=== PATIENT | male | born 1950 | race Two or more races ===

== ENCOUNTER → 2024-06-27 | Outpatient (CLI) | payer OTHER, SELFPAY ==
--- NOTE | 2024-06-27 08:32 | XR_ITS ---
Examination: Bilateral hands, 6 views. Technique: AP, Oblique, Lateral each hand total 6 views Date and time of exam: June 27, 2024 0837 hours INDICATIONS: Bilateral hand pain joint locking in the digits 3 years worse the last 3 months, history carpal tunnel surgery to the right hand 3 years ago FINDINGS: Significant osteopenia Mild to moderate diffuse narrowing joints of the wrists and hands No erosive arthritis No fracture or dislocation involving either hand No ossified joint bodies No cortical bone destruction No opaque foreign bodies IMPRESSION: Diffuse [id number] narrowing joints of the wrists and hands No erosive arthritis
--- NOTE | 2024-06-27 08:32 | XR_ITS ---
Examination: Bilateral wrists 6 views TECHNIQUE: AP oblique lateral each wrist total 6 views Exam date and time: June 27, 2024 0845 hours INDICATIONS: Bilateral wrist pain 3 years worse the last 3 months, history carpal tunnel surgery right wrist 3 years ago FINDINGS: Prominent osteopenia Mild to moderate diffuse narrowing radiocarpal intercarpal and carpometacarpal joints No fracture or dislocation involving either wrist No erosive arthritis involving either wrist No avascular necrosis Soft tissue vascular calcification IMPRESSION: Mild to moderate diffuse narrowing radiocarpal, intercarpal and carpometacarpal joints
== END | disposition home or self-care (01) ==
PROVIDERS: Referring Provider Nurse Practitioner Gerontology; Visit Provider Nurse Practitioner Gerontology
DX: M25.842 Other specified joint disorders, left hand (principal); M25.841 Other specified joint disorders, right hand; M25.832 Other specified joint disorders, left wrist; M25.831 Other specified joint disorders, right wrist
CPT/HCPCS: 73110; 73130